=== PATIENT | female | born 1985 | race Caucasian/White ===

== ENCOUNTER 2023-04-21 13:01 | Emergency (ER) | payer OTHER, SELFPAY ==
[2023-04-21 13:06] VITALS: BP 150/87
[2023-04-21 13:30] LABS: % Basophils 0.3 % (0-2); % Eosinophils 1.9 % (0-6); % Immature Granulocytes 0.2 % (0-0.5); % Lymphocytes 31.4 % (20.5-51.1); % Neutrophils 58.2 % (42.2-75.2); Absolute Eosinophils 0.1 10^3/uL (0-0.7); Absolute Monocytes 0.5 10^3/uL (0.1-0.6); Absolute Neutrophils 3.6 10^3/uL (1.4-6.5); Hematocrit 37.1 % (37.0-47.0); Hemoglobin 12.7 g/dL (12.0-16.0); Mean Corp Hgb Conc. 34.2 g/dL (33.0-37.0); Mean Corpuscular Hgb 29.1 pg (27.0-31.0); Mean Corpuscular Volume 85.1 fL (81.0-99.0); Nucleated Red Blood Cells % 0 %; Platelet Count 222 10^3/uL (130-400); Red Blood Cell Count 4.36 10^6/uL (4.20-5.40); Red Cell Dist. Width 12.4 % (11.5-14.5); White Blood Cell Count 6.2 10^3/uL (4.8-10.8)
[2023-04-21 13:48] LABS: HCG, Serum Qualitative Screen Negative
[2023-04-21 13:52] LABS: ALT (SGPT) 11 U/L (0-35); AST (SGOT) 19 U/L (14-36); Albumin 4.5 g/dl (3.5-5.0); Alkaline Phosphatase 49 U/L (38-126); Blood Urea Nitrogen 9 mg/dl (7-17); Calcium 9.6 mg/dl (8.4-10.2); Carbon Dioxide 27 mmol/L (22-30); Chloride 103 mmol/L (98-107); Glucose 98 mg/dl (70-99); Potassium 4.5 mmol/L (3.5-5.1); Sodium 135 mmol/L (135-145); Total Bilirubin 0.6 mg/dl (0.2-1.3); Total Protein 7.6 g/dl (6.3-8.2)
[2023-04-21 14:11] LABS: eGFR > 60.00
[2023-04-21] MEDS: OMNIPAQUE 50 ML PO (15:51)
[2023-04-21 15:53] VITALS: BP 138/82
[2023-04-21 16:00] VITALS: BP 117/72
--- NOTE | 2023-04-21 16:04 | ED.GENMED ---
History of Present Illness
General
Chief Complaint: Abdominal Symptoms
Source: patient
Exam Limitations: none
Time Seen by Provider: 04/21/23 15:28
Travel History
Have you had any contact with someone who has COVID-19?: No
Do you have any symptoms of coronavirus? Fever > 100 degrees, chills, cough, shortness of breath, sore throat, loss of taste or smell, muscle aches, or headache?: No
History of Present Illness
History of Present Illness:
29-year-old female had an IUD placed 4 days ago. The following day, 3 days ago she did developing abdominal discomfort. Now more localized to the right lower quadrant. No fever. Known vomiting. Some nausea. No back pain no urinary symptoms
minimal vaginal bleeding. Symptoms are moderate in nature.
Past History
Past History
ED Past Medical History: Arrthythmia (SVT, Palpitations)
ED Past Surgical History: None and Orthopedic (Left knee surgery)
Social History
Tobacco: Former smoker
Alcohol: Occasional
Drug: None
Personal:
Living: with family
Employment: Employed
Family History
Family History: Hypertension
Review of Systems
Review of Systems
All Other Systems: Not applicable
Constitutional: Denies fever
: Reports no symptoms
Phy Exam
Physical Exam
Physical Exam:
GENERAL: Alert and oriented in no apparent distress
EYE: Orbits normal.
NECK: Supple
CARDIAC: Regular rate and rhythm without any obvious murmurs.
LUNGS: Clear breath sounds,normal
ABDOMEN: Soft, bowel sound present. Mild referred pain with tapping to the left lower quadrant. Moderate tenderness right lower quadrant. No right deep pelvic tenderness. Rebound or guarding no mass or hernia
NEUROLOGICAL: Alert and oriented , grossly non-focal
SKIN: Warm and dry, no rash or lesion, no discoloration, skin intact.
MUSCULOSKELETAL: No edema,no deformity.Good color
PSYCH: Normal and appropriate interaction.
Course
Orders/Labs/Results
Orders:
Orders
04/21/23 13:10
Test Result ONCE
04/21/23 13:22
Complete Blood Count/With Diff Urgent
Comprehensive Metabolic Panel Urgent
HCG, Serum Qualitative Screen Urgent
Urinalysis Reflex To Culture Urgent
Date Specimen was Collected: 04/21/23
Time Specimen was Collected: 13:10
04/21/23 15:39
IV Insert/Care/Rem.- Treatment PRN
0.9% Sodium Chloride 1000 ml [Nss] 1,000 ml IV BOLUS
Iohexol [Omnipaque] See Protocol PO NOW STA
04/21/23 15:40
CT Abd/pel W Iv And Oral Contr Urgent
Comment:
Reason For Exam: Right lower quadrant pain. Recent IUD placement
US Abdomen - Appendix Only Urgent
Comment:
Reason For Exam: Right lower quadrant pain. Recent IUD placement
US Pelvis Only (non-obstetric) Urgent
Comment:
Reason For Exam: Right lower quadrant pain. Recent IUD placement
04/21/23 13:22
04/21/23 13:22
Vital Signs
Initial and Last Documented VS:
Initial Vital Signs
Temp Pulse Resp BP Pulse Ox
98.2 F 73 16 150/87 98
04/21/23 13:06 04/21/23 13:06 04/21/23 13:06 04/21/23 13:06 04/21/23 13:06
Last Documented Vital Signs
Temp Pulse Resp BP Pulse Ox
98.2 F 57 16 123/74 100
04/21/23 13:06 04/21/23 17:53 04/21/23 13:06 04/21/23 17:53 04/21/23 16:45
MDM/Problems Addressed
Differential Diagnosis Includes:
Tenderness right lower quadrant. Differential includes appendicitis versus secondary to the IUD placement. Chronologically the IUD issue would make more sense although she is tender in the right lower quadrant. Workup in progress. Labs are
stable. We will start with ultrasounds. If this explains the answer we will hold on CT
*Radiology
Radiology exam reviewed: radiology read reviewed (Negative ultrasounds. IUD in place. Negative CT.)
*Pulse Oximetry
Patient hypoxic: no
*Critical Care Note
Total Time (30-74mins, 75-104mins- exclusive of procedures): Not Applicable
Update Note
Update Note:
No serious etiology found for patient's systems. Possible related to the small cyst. Stable for discharge to follow-up
ED Attending Note
-
Portions of this chart may have been created with voice recognition software.� Occasional wrong word or��sound alike� substitutions may have occurred due to the inherent limitations of voice recognition software.
Discharge Plan
Departure
Patient Disposition: Home (Routine Discharge)
Date of Disposition: 04/21/23
Time of Disposition: 19:23
Patient with high blood pressure during this ER visit?: Yes
Discharge Problem:
Right lower quadrant abdominal pain, Recent IUD placement, Corpus luteal cyst
Instructions: Abdominal Pain
Prescriptions:
No Action
PNV cmb#95-ferrous fumarate-FA [] 1 EACH tablet
1 ea PO DAILY
ibuprofen 600 MG tablet
600 mg PO Q4HPRN PRN (Reason: moderate pain/cramps) Qty: 0 0RF
Referrals:
Young Tapia MD [Family Provider] - Follow up in 2-3 days
Activity Restrictions/Additional Instructions:
Follow-up with your [facility] physician. You do have a small corpus luteal cyst. To consider follow-up ultrasound
Recheck with increased pain persistent pain fever or symptoms have not resolved in the next few days
Interventions
Interventions:
ED- Fall Risk Assessment Last Done: 04/21/23 15:55
*ED COVID-19 Vaccine History Last Done: 04/21/23 13:06
TH-Ocgpjw-Zycggqvjsd Assessment Last Done: 04/21/23 15:55
[2023-04-21 16:26] LABS: Urine Albumin Negative (Neg - Trace); Urine Bilirubin Negative (Negative); Urine Character Clear (Clear); Urine Color Yellow; Urine Glucose Negative (Negative); Urine Ketone Negative (Negative); Urine Leukocyte Negative (Negative); Urine Nitrite Negative (Negative); Urine Occult Blood Negative (Negative); Urine Urobilinogen Negative (Neg - 1+)
[2023-04-21] MEDS: NSS 1000 IV (17:04)
[2023-04-21 17:53] VITALS: BP 123/74
[2023-04-21 19:25] VITALS: BP 123/73
[2023-04-21 19:35] VITALS: BP 123/73
== END 2023-04-21 19:36 | disposition home or self-care (01) ==
LOC: EMR 13:01
PROVIDERS: Student in an Organized Health Care Education/Training Program; EMERGENCY PHYSICIAN Emergency Medicine; FAMILY PHYSICIAN Internal Medicine
DX: R10.31 Right lower quadrant pain (principal); Z97.5 Presence of (intrauterine) contraceptive device; N83.11 Corpus luteum cyst of right ovary; Z87.891 Personal history of nicotine dependence; Z82.49 Family history of ischemic heart disease and other diseases of the circulatory system
CPT/HCPCS: 99284; 96360; 74177; 76705; 76856; 80053; 81003; 84703; 85025; Q9967